=== PATIENT | female | born 1965 | race Caucasian/White ===

== ENCOUNTER 2017-12-16 10:13 | Emergency (ER) | payer OTHER ==
[~2017-12-16] VITALS: Ht 162.6 cm; Wt 91.0 kg
[2017-12-16] MEDS ORDERED: SODIUM CHLORIDE 0.9% 1,000 ML IV ONE (17:39)
[2017-12-16] MEDS ORDERED: KETOROLAC 30MG/ML VIAL IV STA (17:39)
[2017-12-16 17:58] LABS: BASOPHILS % 0.2 % (0.0-2.0); HEMATOCRIT. 42.3 % (36.0-48.0); HEMOGLOBIN. 13.9 g/dL (12.0-16.0); LYMPHOCYTES % 8.9 % (20.0-50.0); MEAN CORPUSCULAR HEMOGLOBIN 29.5 pg (28.0-32.0); MEAN CORPUSCULAR VOLUME 89.6 fL (81.0-99.0); MEAN PLATELET VOLUME 8.7 fl (7.4-10.4); MONOCYTES % 4.6 % (2.0-8.0); NEUTROPHILS % 86.3 % (40.0-76.0); PLATELET 278 x1000/uL (130-400); RED BLOOD CELL COUNT 4.72 mill/uL (4.2-5.4); RED CELL DISTRIBUTION WIDTH 13.9 % (11.6-14.6)
[2017-12-16 18:04] LABS: PROTHROMBIN TIME 10.7 sec (9.4-11.6)
[2017-12-16 18:07] LABS: CARBON DIOXIDE 25 mEq/L (21-32); CHLORIDE 98 mEq/L (98-107)
[2017-12-16] MEDS ORDERED: ONDANSETRON HCL 4MG/2ML VIAL IV ONE (18:15)
[2017-12-16] MEDS ORDERED: INSULIN REGULAR (HUMULIN R) UD 100 UNITS/ML SYR IV ONE (19:15)
[2017-12-16] MEDS ORDERED: INSULIN REGULAR (HUMULIN R) 300UNITS/3ML IV NR (20:54)
[2017-12-16 22:05] LABS: CLARITY URINE CLOUDY (CLEAR); COLOR URINE YELLOW (YELLOW); KETONES URINE 4+ (NEGATIVE); LEUKOCYTE ESTERASE URINE 1+ (NEGATIVE); NITRITE URINE NEGATIVE (NEGATIVE); OCCULT BLOOD URINE 3+ (NEGATIVE); PROTEIN URINE 1+ (NEGATIVE); SPECIFIC GRAVITY URINE 1.036 (1.005-1.030); UROBILINOGEN URINE 0.2 E.U./dL (0.2-1.0)
[2017-12-16 23:54] VITALS: BP 126/74
== END 2017-12-16 23:58 | disposition home or self-care (01) ==
LOC: ER 10:13
DX: E11.65 Type 2 diabetes mellitus with hyperglycemia (principal); N13.2 Hydronephrosis with renal and ureteral calculous obstruction; Z90.49 Acquired absence of other specified parts of digestive tract
CPT/HCPCS: 36415; 74176; 80048; 81001; 81025; 82962; 85025; 85610; 87086; 96361; 96374; 96375; 99285; J1815; J1885; J2405; J7030; Z7610

== ENCOUNTER 2019-02-04 08:25 | Inpatient (IN) | payer OTHER ==
[~2019-02-04] VITALS: Ht 160 cm; Wt 91.6 kg
[2019-02-04] MEDS ORDERED: LIDOCAINE HCL/PF 1% 10 MG/ML 5ML VIAL IJ ONE (11:00)
[2019-02-04] MEDS ORDERED: BACITRACIN ZINC OINT UDPKT TOP ONE (11:00)
[2019-02-04 11:09] LABS: HEMATOCRIT. 39.8 % (36.0-48.0); MEAN CORPUSCULAR HEMOGLOBIN 29.5 pg (28.0-32.0); MEAN CORPUSCULAR VOLUME 89.9 fL (81.0-99.0); MEAN PLATELET VOLUME 8.8 fl (7.4-10.4); PLATELET 292 x1000/uL (130-400); RED BLOOD CELL COUNT 4.43 mill/uL (4.2-5.4); RED CELL DISTRIBUTION WIDTH 14.6 % (11.6-14.6)
[2019-02-04] MEDS ORDERED: SODIUM CHLORIDE 0.9% 1000ML BAG (SEPSIS BOLUS) IV ONE (11:15)
[2019-02-04 11:24] LABS: CHLORIDE 97 mEq/L (98-107); PROTHROMBIN TIME 10.4 sec (9.1-11.1)
[2019-02-04] MEDS ORDERED: ONDANSETRON HCL 4MG/2ML INJ IV ONE (11:30)
[2019-02-04] MEDS ORDERED: MORPHINE SULFATE 4 MG/ML CPJ (NOT FOR IM USE) IV ONE (11:30)
[2019-02-04 11:43] LABS: PLATELET ESTIMATE NORMAL
[2019-02-04 12:19] LABS: CLARITY URINE CLEAR (CLEAR); COLOR URINE YELLOW (YELLOW); KETONES URINE 1+ (NEGATIVE); LEUKOCYTE ESTERASE URINE 3+ (NEGATIVE); NITRITE URINE NEGATIVE (NEGATIVE); OCCULT BLOOD URINE 2+ (NEGATIVE); PH URINE 6.5 (4.5-8.0); PROTEIN URINE NEGATIVE (NEGATIVE); SPECIFIC GRAVITY URINE 1.003 (1.005-1.030); UROBILINOGEN URINE 0.2 E.U./dL (0.2-1.0)
[2019-02-04] MEDS ORDERED: VANCOMYCIN 1 G PREMIX 200 ML IV STA (12:27)
[2019-02-04] MEDS ORDERED: IOHEXOL-350 100 ML BOTTLE ONE (12:58)
[2019-02-04] MEDS ORDERED: FLUCONAZOLE 50MG TABLET PO ONE (13:45)
[2019-02-04] MEDS ORDERED: CEFTRIAXONE 1 G PREMIX 50 ML IV ONE (13:45)
[2019-02-04] MEDS ORDERED: ACETAMINOPHEN 325MG TABLET PO PRN (16:45)
[2019-02-04] MEDS ORDERED: ONDANSETRON HCL 4MG/2ML INJ IV PRN (16:45)
[2019-02-04] MEDS ORDERED: DEXTROSE 50% WATER 50ML SYRINGE IV PRN (16:45)
[2019-02-04] MEDS: ATORVASTATIN CALCIUM 40MG TABLET PO SCH (22:40)
[2019-02-04] MEDS ORDERED: INSULIN GLARGINE UD 100 UNITS/ML SYR SUBCUT NR (23:30)
[2019-02-04] MEDS ORDERED: ATORVASTATIN CALCIUM 40MG TABLET PO NR (23:30)
[2019-02-04] MEDS ORDERED: INSULIN REGULAR (HUMULIN R) 300UNITS/3ML ONE (23:42)
[2019-02-05] VITALS (7 sets, daily range): BP systolic 90–112; BP diastolic 47–70
[2019-02-05] MEDS ORDERED: ZOLPIDEM TARTRATE 5MG TABLET PO PRN (01:58)
[2019-02-05] MEDS ORDERED: VANCOMYCIN 750 MG PREMIX 150 ML IV SCH (03:00)
[2019-02-05] MEDS ORDERED: LEVOFLOXACIN 500MG PREMIX 100 ML IV SCH (04:00)
[2019-02-05] MEDS: BLOOD SUGAR DIAGNOSTIC STRIP TEST SCH ×4 (06:18→21:48)
[2019-02-05] MEDS: INSULIN LISPRO 100 UNITS/ML SUBCUT SCH ×6 (06:18→22:12)
[2019-02-05 09:28] LABS: CHLORIDE 107 mEq/L (98-107)
[2019-02-05 09:34] LABS: HEMATOCRIT. 35.9 % (36.0-48.0); HEMOGLOBIN. 11.6 g/dL (12.0-16.0); MEAN CORPUSCULAR HEMOGLOBIN 29.2 pg (28.0-32.0); MEAN CORPUSCULAR VOLUME 90.3 fL (81.0-99.0); MEAN PLATELET VOLUME 9.1 fl (7.4-10.4); PLATELET 325 x1000/uL (130-400); RED BLOOD CELL COUNT 3.98 mill/uL (4.2-5.4); RED CELL DISTRIBUTION WIDTH 14.6 % (11.6-14.6)
[2019-02-05] MEDS ORDERED: INSULIN GLARGINE UD 100 UNITS/ML SYR SUBCUT SCH (10:00)
[2019-02-05] MEDS: HYDROCODONE/ACETAMINOPHEN 5/325MG TABLET PO PRN (12:01)
[2019-02-05] MEDS: VANCOMYCIN 1 G PREMIX 200 ML IV SCH ×2 (13:20→22:10)
[2019-02-05] MEDS: INSULIN GLARGINE UD 100 UNITS/ML SYR SUBCUT SCH (22:12)
[2019-02-06] VITALS: BP 103/76
[2019-02-06 04:00] VITALS: BP 107/58
[2019-02-06] MEDS ORDERED: LEVOFLOXACIN 500MG PREMIX 100 ML IV SCH (04:00)
[2019-02-06] MEDS: HYDROCODONE/ACETAMINOPHEN 5/325MG TABLET PO PRN (06:39)
[2019-02-06] MEDS: BLOOD SUGAR DIAGNOSTIC STRIP TEST SCH ×4 (06:41→21:31)
[2019-02-06] MEDS: INSULIN LISPRO 100 UNITS/ML SUBCUT SCH ×7 (07:05→21:30)
[2019-02-06 07:59] LABS: BASOPHILS % 0.3 % (0.0-2.0); EOSINOPHILS % 0.2 % (0.0-5.0); HEMATOCRIT. 37.6 % (36.0-48.0); HEMOGLOBIN. 12.3 g/dL (12.0-16.0); LYMPHOCYTES % 8.4 % (20.0-50.0); MEAN CORPUSCULAR HEMOGLOBIN 29.3 pg (28.0-32.0); MEAN CORPUSCULAR VOLUME 89.3 fL (81.0-99.0); MEAN PLATELET VOLUME 9.4 fl (7.4-10.4); MONOCYTES % 7.3 % (2.0-8.0); NEUTROPHILS % 83.8 % (40.0-76.0); PLATELET 330 x1000/uL (130-400); RED BLOOD CELL COUNT 4.21 mill/uL (4.2-5.4); RED CELL DISTRIBUTION WIDTH 14.7 % (11.6-14.6)
[2019-02-06 08:00] VITALS: BP 95/62
[2019-02-06 08:25] LABS: CHLORIDE 103 mEq/L (98-107)
[2019-02-06] MEDS: VANCOMYCIN 1 G PREMIX 200 ML IV SCH (08:52)
[2019-02-06] MEDS: INSULIN GLARGINE UD 100 UNITS/ML SYR SUBCUT SCH ×2 (10:40→21:31)
[2019-02-06 12:00] VITALS: BP 113/61
[2019-02-06 13:21] LABS: PLATELET ESTIMATE NORMAL
[2019-02-06 16:00] VITALS: BP 109/65
[2019-02-06] MEDS: GLIPIZIDE 5MG TABLET PO SCH (17:24)
[2019-02-06] MEDS: FLUCONAZOLE 100MG TABLET PO SCH (17:24)
[2019-02-06] MEDS: VANCOMYCIN 1250MG in DEXTROSE 5% WATER 250ML IV SCH (18:11)
[2019-02-06 20:00] VITALS: BP 132/69
[2019-02-06] MEDS: ATORVASTATIN CALCIUM 40MG TABLET PO SCH (21:29)
[2019-02-07] VITALS: BP 154/90
[2019-02-07] MEDS: VANCOMYCIN 1250MG in DEXTROSE 5% WATER 250ML IV SCH ×3 (00:38→17:42)
[2019-02-07] MEDS: HYDROCODONE/ACETAMINOPHEN 5/325MG TABLET PO PRN ×2 (03:56→10:23)
[2019-02-07 04:00] VITALS: BP 115/69
[2019-02-07] MEDS: GLIPIZIDE 5MG TABLET PO SCH ×2 (06:32→17:42)
[2019-02-07] MEDS: BLOOD SUGAR DIAGNOSTIC STRIP TEST SCH ×4 (06:32→21:08)
[2019-02-07] MEDS: INSULIN LISPRO 100 UNITS/ML SUBCUT SCH ×7 (06:34→21:31)
[2019-02-07 07:14] LABS: BASOPHILS % 0.4 % (0.0-2.0); EOSINOPHILS % 0.2 % (0.0-5.0); HEMATOCRIT. 35.7 % (36.0-48.0); HEMOGLOBIN. 11.9 g/dL (12.0-16.0); LYMPHOCYTES % 8.1 % (20.0-50.0); MEAN CORPUSCULAR HEMOGLOBIN 29.3 pg (28.0-32.0); MEAN CORPUSCULAR VOLUME 88.2 fL (81.0-99.0); MEAN PLATELET VOLUME 9.5 fl (7.4-10.4); MONOCYTES % 9.9 % (2.0-8.0); NEUTROPHILS % 81.4 % (40.0-76.0); PLATELET 309 x1000/uL (130-400); RED BLOOD CELL COUNT 4.05 mill/uL (4.2-5.4)
[2019-02-07 07:36] LABS: CHLORIDE 99 mEq/L (98-107)
[2019-02-07 08:00] VITALS: BP 127/79
[2019-02-07] MEDS ORDERED: POTASSIUM CHLORIDE 20MEQ/PACKET PO SCH (08:15)
[2019-02-07] MEDS: FLUCONAZOLE 100MG TABLET PO SCH (09:03)
[2019-02-07] MEDS: INSULIN GLARGINE UD 100 UNITS/ML SYR SUBCUT SCH ×2 (09:04→21:31)
[2019-02-07] MEDS ORDERED: KCL 20MEQ/100ML PREMIX 100 ML IV SCH (10:00)
[2019-02-07] MEDS ORDERED: LIDOCAINE HCL 1% 20ML VIAL (Pyxis) INJ INFIL NR (11:15)
[2019-02-07 12:00] VITALS: BP 143/86
[2019-02-07 16:00] VITALS: BP 115/64
[2019-02-07 20:00] VITALS: BP 98/60
[2019-02-07] MEDS: ATORVASTATIN CALCIUM 40MG TABLET PO SCH (21:26)
[2019-02-08] VITALS: BP 100/61
[2019-02-08] MEDS: VANCOMYCIN 1250MG in DEXTROSE 5% WATER 250ML IV SCH ×3 (01:12→17:51)
[2019-02-08 04:00] VITALS: BP 124/70
[2019-02-08 06:41] LABS: CHLORIDE 102 mEq/L (98-107)
[2019-02-08 06:43] LABS: BASOPHILS % 1.1 % (0.0-2.0); EOSINOPHILS % 0.5 % (0.0-5.0); HEMATOCRIT. 33.3 % (36.0-48.0); HEMOGLOBIN. 10.9 g/dL (12.0-16.0); LYMPHOCYTES % 14.5 % (20.0-50.0); MEAN CORPUSCULAR HEMOGLOBIN 28.9 pg (28.0-32.0); MEAN CORPUSCULAR VOLUME 88.4 fL (81.0-99.0); MONOCYTES % 9.1 % (2.0-8.0); NEUTROPHILS % 74.8 % (40.0-76.0); PLATELET 285 x1000/uL (130-400); RED BLOOD CELL COUNT 3.77 mill/uL (4.2-5.4); RED CELL DISTRIBUTION WIDTH 14.3 % (11.6-14.6)
[2019-02-08] MEDS: INSULIN LISPRO 100 UNITS/ML SUBCUT SCH ×7 (07:10→21:24)
[2019-02-08] MEDS: BLOOD SUGAR DIAGNOSTIC STRIP TEST SCH ×4 (07:12→21:25)
[2019-02-08] MEDS: GLIPIZIDE 5MG TABLET PO SCH ×2 (07:12→17:51)
[2019-02-08 08:00] VITALS: BP 100/57
[2019-02-08] MEDS: FLUCONAZOLE 100MG TABLET PO SCH (08:55)
[2019-02-08] MEDS: INSULIN GLARGINE UD 100 UNITS/ML SYR SUBCUT SCH ×2 (09:57→21:24)
[2019-02-08 12:00] VITALS: BP 93/57
[2019-02-08] MEDS ORDERED: POTASSIUM CHLORIDE 20MEQ TABLET SR PO NR (12:30)
[2019-02-08 15:45] VITALS: BP 102/59
[2019-02-08 20:00] VITALS: BP 109/76
[2019-02-08] MEDS: ATORVASTATIN CALCIUM 40MG TABLET PO SCH (21:25)
[2019-02-09] VITALS: BP 114/77
[2019-02-09] MEDS: VANCOMYCIN 1250MG in DEXTROSE 5% WATER 250ML IV SCH ×2 (01:39→10:03)
[2019-02-09 04:00] VITALS: BP 111/76
[2019-02-09 06:33] LABS: BASOPHILS % 0.9 % (0.0-2.0); HEMATOCRIT. 33.6 % (36.0-48.0); HEMOGLOBIN. 11.1 g/dL (12.0-16.0); LYMPHOCYTES % 22.1 % (20.0-50.0); MEAN CORPUSCULAR HEMOGLOBIN 29.1 pg (28.0-32.0); MONOCYTES % 10.4 % (2.0-8.0); NEUTROPHILS % 64.6 % (40.0-76.0); PLATELET 333 x1000/uL (130-400); RED BLOOD CELL COUNT 3.82 mill/uL (4.2-5.4); RED CELL DISTRIBUTION WIDTH 14.4 % (11.6-14.6)
[2019-02-09 06:56] LABS: CHLORIDE 103 mEq/L (98-107)
[2019-02-09] MEDS: GLIPIZIDE 5MG TABLET PO SCH (07:09)
[2019-02-09] MEDS: INSULIN LISPRO 100 UNITS/ML SUBCUT SCH ×4 (07:10→12:08)
[2019-02-09] MEDS: BLOOD SUGAR DIAGNOSTIC STRIP TEST SCH ×2 (07:11→12:03)
[2019-02-09 08:00] VITALS: BP 136/76
[2019-02-09] MEDS: FLUCONAZOLE 100MG TABLET PO SCH (10:02)
[2019-02-09] MEDS: INSULIN GLARGINE UD 100 UNITS/ML SYR SUBCUT SCH (11:04)
[2019-02-09 12:00] VITALS: BP 124/61
[2019-02-09] MEDS ORDERED: POTASSIUM CHLORIDE 20MEQ TABLET SR PO NR (12:45)
[2019-02-09 13:02] VITALS: BP 124/61
[2019-02-09] MEDS ORDERED: CEPH-569 MT (14:59)
[2019-02-09] MEDS ORDERED: DOXY150T MT (14:59)
== END 2019-02-09 15:00 | disposition home health service (06) | DRG 710 ==
LOC: ER 08:28 → 5WST 15:24 → ENRESERV 22:24
PROVIDERS: ADMIT Internal Medicine; ATTEND Internal Medicine
PROC: 0W960ZZ Drainage of Neck, Open Approach (ICD-10-PCS; principal; 2019-02-07)
DX: A41.9 Sepsis, unspecified organism (principal); E11.65 Type 2 diabetes mellitus with hyperglycemia; E87.8 Other disorders of electrolyte and fluid balance, not elsewhere classified; E44.1 Mild protein-calorie malnutrition; E87.1 Hypo-osmolality and hyponatremia; L03.221 Cellulitis of neck; E66.9 Obesity, unspecified; N39.0 Urinary tract infection, site not specified; L02.11 Cutaneous abscess of neck; Z87.442 Personal history of urinary calculi; Z90.49 Acquired absence of other specified parts of digestive tract; Z71.3 Dietary counseling and surveillance; Z68.35 Body mass index [BMI] 35.0-35.9, adult
CPT/HCPCS: 36415; 70491; 80048; 80202; 82962; 83036; 83605; 84145; 87106; 93005; 93970; 96374; 96375; 99285; J0696; J1815; J1956; J2270; J2405; J3370; J3480; J3490; J7030; J7040; J7050; J7060; Q9967

== ENCOUNTER 2020-11-12 02:13 | Inpatient (IN) | payer OTHER ==
[~2020-11-12] VITALS: Ht 162.6 cm; Wt 88.6 kg
[~2020-11-12 02:13] MED LIST: INSLIS SUBCUT; INSU100V37 SQ; LANTUSUD SUBCUT; PANT40TA4 MT
[2020-11-12] MEDS ORDERED: ONDANSETRON HCL 4MG/2ML INJ IV STA (02:28)
[2020-11-12] MEDS ORDERED: ACETAMINOPHEN 325MG TABLET PO STA (02:28)
[2020-11-12] MEDS ORDERED: SODIUM CHLORIDE 0.9% 1,000 ML IV ONE ×2 (02:30→04:15)
[2020-11-12 02:58] LABS: BG BASE EXCESS -6.3 mmol/L (-2.0-2.0); BG CARBOXYHEMOGLOBIN 0.5 % (0.5-1.5); BG DEOXYHEMOGLOBIN 3.5 % (0.0-5.0); BG FRACTION INSPIRED OXYGEN 21; BG HCO3 ACT 19.2 mmol/L (22.0-26.0); BG METHEMOGLOBIN 0.1 % (0.0-1.5); BG OXYGEN SATURATION 96.5 % (92.0-98.5); BG OXYHEMOGLOBIN 95.9 % (94.0-97.0); BG PCO2 38.3 mmHg (35.0-45.0); BG PH 7.319 (7.350-7.450); BG PO2 91.2 mmHg (75.0-100.0); BG SAMPLE SITE RIGHT BRACHIAL; BG TOTAL HEMOGLOBIN 14.7 g/dL (12.0-18.0); BG VENT MODE ROOM AIR
[2020-11-12 03:26] LABS: HEMATOCRIT. 44.5 % (36.0-48.0); HEMOGLOBIN. 13.8 g/dL (12.0-16.0); MEAN CORPUSCULAR HEMOGLOBIN 28.9 pg (28.0-32.0); MEAN CORPUSCULAR VOLUME 92.9 fL (81.0-99.0); MEAN PLATELET VOLUME 10.1 fl (7.4-10.4); PLATELET 398 x1000/uL (130-400); RED BLOOD CELL COUNT 4.79 mill/uL (4.2-5.4); RED CELL DISTRIBUTION WIDTH 15.6 % (11.6-14.6)
[2020-11-12 03:36] LABS: CHLORIDE 118 mEq/L (98-107)
[2020-11-12 03:43] LABS: BETA HYDROXYBUTYRATE 1.8 mMol/L (0.0-0.3)
[2020-11-12] MEDS ORDERED: PIPERACILLIN/TAZ 3.375G PREMIX 50 ML IV ONE (04:00)
[2020-11-12] MEDS ORDERED: VANCOMYCIN 1 G PREMIX 200 ML IV ONE (04:00)
[2020-11-12] MEDS ORDERED: INSULIN REGULAR (DRIP) 100 UNITS in SODIUM CHLORIDE 0.9% 99 ML IV SCH ×2 (04:15→05:00)
[2020-11-12 04:53] LABS: PHOSPHORUS 5.4 mg/dL (2.5-4.9)
[2020-11-12 07:22] LABS: PLATELET ESTIMATE NORMAL
[2020-11-12] MEDS ORDERED: ONDANSETRON HCL 4MG/2ML INJ IV PRN (09:15)
[2020-11-12] MEDS ORDERED: DEXTROSE 50% WATER 50ML SYRINGE IV PRN (09:15)
[2020-11-12] MEDS ORDERED: ACETAMINOPHEN 325MG TABLET PO PRN (09:15)
[2020-11-12] MEDS: BLOOD SUGAR DIAGNOSTIC STRIP TEST SCH ×4 (09:30→21:38)
[2020-11-12] MEDS ORDERED: SODIUM CHLORIDE 0.45% 1,000 ML IV SCH (09:45)
[2020-11-12] MEDS ORDERED: INSULIN GLARGINE UD 100 UNITS/ML SYR SUBCUT NR (10:00)
[2020-11-12 10:12] LABS: CLARITY URINE TURBID (CLEAR); COLOR URINE YELLOW (YELLOW); KETONES URINE TRACE (NEGATIVE); LEUKOCYTE ESTERASE URINE 2+ (NEGATIVE); NITRITE URINE NEGATIVE (NEGATIVE); OCCULT BLOOD URINE 3+ (NEGATIVE); PROTEIN URINE 1+ (NEGATIVE); SPECIFIC GRAVITY URINE 1.025 (1.005-1.030); UROBILINOGEN URINE 0.2 E.U./dL (0.2-1.0)
[2020-11-12] MEDS: INSULIN LISPRO 100 UNITS/ML SUBCUT SCH ×4 (10:15→21:00)
[2020-11-12] MEDS: ENOXAPARIN 30MG/0.3ML SYR SUBCUT SCH ×2 (11:00→22:27)
[2020-11-12] MEDS ORDERED: POTASSIUM CHLORIDE INJ 40 MEQ in DEXT 5% WATER 250 ML IV SCH (11:00)
[2020-11-12] MEDS ORDERED: CEFTRIAXONE 1 G PREMIX 50 ML IV SCH (16:45)
[2020-11-12] MEDS ORDERED: CEFTRIAXONE 1,000 MG in DEXTROSE 5% WATER 50 ML IV SCH (18:00)
[2020-11-12] MEDS: DEXTROSE 5% WATER 1,000 ML IV SCH (21:41)
[2020-11-12] MEDS ORDERED: INSULIN GLARGINE UD 100 UNITS/ML SYR SUBCUT SCH (22:00)
[2020-11-13] MEDS: INSULIN LISPRO 100 UNITS/ML SUBCUT SCH ×4 (06:40→21:00)
[2020-11-13] MEDS: BLOOD SUGAR DIAGNOSTIC STRIP TEST SCH ×4 (06:40→21:42)
[2020-11-13 08:00] VITALS: BP 92/45
[2020-11-13 09:29] LABS: BASOPHILS % 0.4 % (0.0-2.0); EOSINOPHILS % 0.3 % (0.0-5.0); HEMATOCRIT. 35.3 % (36.0-48.0); HEMOGLOBIN. 11.4 g/dL (12.0-16.0); MEAN CORPUSCULAR HEMOGLOBIN 29.1 pg (28.0-32.0); MEAN PLATELET VOLUME 9.7 fl (7.4-10.4); MONOCYTES % 3.7 % (2.0-8.0); NEUTROPHILS % 86.6 % (40.0-76.0); PLATELET 282 x1000/uL (130-400); RED BLOOD CELL COUNT 3.92 mill/uL (4.2-5.4); RED CELL DISTRIBUTION WIDTH 14.6 % (11.6-14.6)
[2020-11-13] MEDS: INSULIN GLARGINE UD 100 UNITS/ML SYR SUBCUT SCH ×2 (10:00→22:00)
[2020-11-13] MEDS: ENOXAPARIN 30MG/0.3ML SYR SUBCUT SCH (10:24)
[2020-11-13] MEDS ORDERED: POTASSIUM CHLORIDE 20MEQ TABLET SR PO ONE (12:45)
[2020-11-13] MEDS: DEXTROSE 5% WATER 1,000 ML IV SCH (12:45)
[2020-11-13] MEDS: MIDODRINE HCL 5MG TABLET PO SCH ×2 (16:17→17:00)
[2020-11-13] MEDS: CEFTRIAXONE 1,000 MG in DEXTROSE 5% WATER 50 ML IV SCH (16:18)
[2020-11-13 20:00] VITALS: BP 104/58
[2020-11-13 21:40] VITALS: BP 92/45
[2020-11-13] MEDS: ENOXAPARIN 40MG/0.4ML SYR SUBCUT SCH (21:42)
[2020-11-14] VITALS: BP 111/60
[2020-11-14 04:00] VITALS: BP 108/77
[2020-11-14] MEDS: INSULIN LISPRO 100 UNITS/ML SUBCUT SCH ×4 (06:55→22:09)
[2020-11-14] MEDS: BLOOD SUGAR DIAGNOSTIC STRIP TEST SCH ×4 (06:56→22:02)
[2020-11-14] MEDS: DEXTROSE 5% WATER 1,000 ML IV SCH ×3 (06:56→18:08)
[2020-11-14 07:42] LABS: BASOPHILS % 0.5 % (0.0-2.0); EOSINOPHILS % 0.6 % (0.0-5.0); HEMATOCRIT. 36.4 % (36.0-48.0); HEMOGLOBIN. 11.9 g/dL (12.0-16.0); LYMPHOCYTES % 10.4 % (20.0-50.0); MEAN CORPUSCULAR HEMOGLOBIN 29.4 pg (28.0-32.0); MEAN CORPUSCULAR VOLUME 89.4 fL (81.0-99.0); MEAN PLATELET VOLUME 9.8 fl (7.4-10.4); MONOCYTES % 3.8 % (2.0-8.0); NEUTROPHILS % 84.7 % (40.0-76.0); PLATELET 260 x1000/uL (130-400); RED BLOOD CELL COUNT 4.07 mill/uL (4.2-5.4); RED CELL DISTRIBUTION WIDTH 14.8 % (11.6-14.6)
[2020-11-14] MEDS: MIDODRINE HCL 5MG TABLET PO SCH ×4 (09:00→17:00)
[2020-11-14] MEDS: ENOXAPARIN 40MG/0.4ML SYR SUBCUT SCH ×2 (09:00→10:37)
[2020-11-14] MEDS: INSULIN GLARGINE UD 100 UNITS/ML SYR SUBCUT SCH ×2 (10:39→22:09)
[2020-11-14 12:00] VITALS: BP 101/55
[2020-11-14] MEDS: CEFTRIAXONE 1,000 MG in DEXTROSE 5% WATER 50 ML IV SCH (13:30)
[2020-11-14 16:00] VITALS: BP 103/66
[2020-11-14 20:00] VITALS: BP 95/54
[2020-11-14] MEDS: ENOXAPARIN 30MG/0.3ML SYR SUBCUT SCH (22:07)
[2020-11-15] VITALS (9 sets, daily range): BP systolic 85–98; BP diastolic 44–62
[2020-11-15] MEDS: BLOOD SUGAR DIAGNOSTIC STRIP TEST SCH ×4 (06:25→21:55)
[2020-11-15] MEDS: DEXTROSE 5% WATER 1,000 ML IV SCH ×2 (06:53→14:49)
[2020-11-15] MEDS: INSULIN LISPRO 100 UNITS/ML SUBCUT SCH ×4 (06:54→21:58)
[2020-11-15 07:55] LABS: BASOPHILS % 0.8 % (0.0-2.0); EOSINOPHILS % 1.5 % (0.0-5.0); HEMATOCRIT. 33.1 % (36.0-48.0); HEMOGLOBIN. 10.8 g/dL (12.0-16.0); MEAN CORPUSCULAR HEMOGLOBIN 29.4 pg (28.0-32.0); MEAN CORPUSCULAR VOLUME 89.7 fL (81.0-99.0); MEAN PLATELET VOLUME 10.2 fl (7.4-10.4); MONOCYTES % 6.1 % (2.0-8.0); NEUTROPHILS % 80.6 % (40.0-76.0); PLATELET 222 x1000/uL (130-400); RED BLOOD CELL COUNT 3.68 mill/uL (4.2-5.4); RED CELL DISTRIBUTION WIDTH 14.7 % (11.6-14.6)
[2020-11-15 08:09] LABS: CHLORIDE 124 mEq/L (98-107)
[2020-11-15] MEDS: MIDODRINE HCL 5MG TABLET PO SCH ×5 (09:00→17:00)
[2020-11-15] MEDS: ENOXAPARIN 30MG/0.3ML SYR SUBCUT SCH ×2 (10:02→21:55)
[2020-11-15] MEDS: INSULIN GLARGINE UD 100 UNITS/ML SYR SUBCUT SCH ×2 (10:55→21:57)
[2020-11-15] MEDS ORDERED: POTASSIUM CHLORIDE 20MEQ TABLET SR PO NR (14:45)
[2020-11-15] MEDS: CEFTRIAXONE 1,000 MG in DEXTROSE 5% WATER 50 ML IV SCH (14:48)
[2020-11-15] MEDS ORDERED: POTASSIUM CHLORIDE INJ 40 MEQ in DEXT 5% WATER 250 ML IV ONE (18:00)
[2020-11-16] VITALS: BP 146/86
[2020-11-16 04:00] VITALS: BP 102/51
[2020-11-16] MEDS: DEXTROSE 5% WATER 1,000 ML IV SCH ×3 (07:01→21:27)
[2020-11-16] MEDS: BLOOD SUGAR DIAGNOSTIC STRIP TEST SCH ×4 (07:01→21:27)
[2020-11-16 07:13] LABS: BASOPHILS % 0.5 % (0.0-2.0); EOSINOPHILS % 1.5 % (0.0-5.0); HEMATOCRIT. 35.4 % (36.0-48.0); HEMOGLOBIN. 11.7 g/dL (12.0-16.0); LYMPHOCYTES % 11.3 % (20.0-50.0); MEAN CORPUSCULAR HEMOGLOBIN 29.4 pg (28.0-32.0); MEAN CORPUSCULAR VOLUME 89.2 fL (81.0-99.0); MEAN PLATELET VOLUME 10.6 fl (7.4-10.4); MONOCYTES % 7.3 % (2.0-8.0); NEUTROPHILS % 79.4 % (40.0-76.0); PLATELET 192 x1000/uL (130-400); RED BLOOD CELL COUNT 3.97 mill/uL (4.2-5.4); RED CELL DISTRIBUTION WIDTH 14.6 % (11.6-14.6)
[2020-11-16 08:00] VITALS: BP 98/49
[2020-11-16 08:03] LABS: CHLORIDE 120 mEq/L (98-107)
[2020-11-16] MEDS: MIDODRINE HCL 5MG TABLET PO SCH ×4 (09:00→17:00)
[2020-11-16] MEDS: ENOXAPARIN 30MG/0.3ML SYR SUBCUT SCH ×2 (10:23→21:28)
[2020-11-16] MEDS: INSULIN GLARGINE UD 100 UNITS/ML SYR SUBCUT SCH ×2 (10:31→23:16)
[2020-11-16] MEDS: INSULIN LISPRO 100 UNITS/ML SUBCUT SCH ×4 (10:32→21:00)
[2020-11-16 12:00] VITALS: BP 108/45
[2020-11-16] MEDS: CEFTRIAXONE 1,000 MG in DEXTROSE 5% WATER 50 ML IV SCH (13:44)
[2020-11-16 16:17] VITALS: BP 101/64
[2020-11-16 20:00] VITALS: BP 130/60
[2020-11-17] VITALS: BP_SYST 128; BP_SYST 92; BP_DIAS 55; BP_DIAS 60
[2020-11-17 04:00] VITALS: BP 108/60
[2020-11-17] MEDS: BLOOD SUGAR DIAGNOSTIC STRIP TEST SCH ×4 (06:20→20:59)
[2020-11-17] MEDS: INSULIN LISPRO 100 UNITS/ML SUBCUT SCH ×4 (07:40→21:55)
[2020-11-17 08:00] VITALS: BP 94/46
[2020-11-17] MEDS: MIDODRINE HCL 5MG TABLET PO SCH ×3 (10:40→19:04)
[2020-11-17] MEDS: ENOXAPARIN 30MG/0.3ML SYR SUBCUT SCH (10:40)
[2020-11-17] MEDS: INSULIN GLARGINE UD 100 UNITS/ML SYR SUBCUT SCH ×2 (10:42→22:00)
[2020-11-17] MEDS: DEXTROSE 5% WATER 1,000 ML IV SCH ×2 (10:46→18:14)
[2020-11-17 12:00] VITALS: BP 95/70
[2020-11-17] MEDS: CEFTRIAXONE 1,000 MG in DEXTROSE 5% WATER 50 ML IV SCH (14:43)
[2020-11-17 16:00] VITALS: BP 109/64
[2020-11-18] VITALS: BP 92/55
[2020-11-18] MEDS: DEXTROSE 5% WATER 1,000 ML IV SCH ×2 (02:45→12:45)
[2020-11-18 04:00] VITALS: BP 108/63
[2020-11-18] MEDS: INSULIN LISPRO 100 UNITS/ML SUBCUT SCH ×2 (06:42→14:02)
[2020-11-18] MEDS: BLOOD SUGAR DIAGNOSTIC STRIP TEST SCH ×2 (06:42→13:02)
[2020-11-18] MEDS: MIDODRINE HCL 5MG TABLET PO SCH ×4 (09:00→14:01)
[2020-11-18] MEDS ORDERED: ENOXAPARIN 40MG/0.4ML SYR SUBCUT SCH (09:00)
[2020-11-18] MEDS: INSULIN GLARGINE UD 100 UNITS/ML SYR SUBCUT SCH (09:30)
[2020-11-18 14:37] VITALS: BP 100/51
== END 2020-11-18 17:07 | disposition home or self-care (01) | DRG 720 ==
LOC: ER 02:13 → MICUSO 04:15 → EDBEDREQTM 20:46 → EDBEDREQSVC 20:46 → 8WST 11-13 08:36
PROVIDERS: ADMIT Internal Medicine; ATTEND Internal Medicine
DX: A41.9 Sepsis, unspecified organism (principal); U07.1 COVID-19; R65.21 Severe sepsis with septic shock; N39.0 Urinary tract infection, site not specified; E11.00 Type 2 diabetes mellitus with hyperosmolarity without nonketotic hyperglycemic-hyperosmolar coma (NKHHC); K85.90 Acute pancreatitis without necrosis or infection, unspecified; N17.0 Acute kidney failure with tubular necrosis; E43 Unspecified severe protein-calorie malnutrition; E87.1 Hypo-osmolality and hyponatremia; E87.8 Other disorders of electrolyte and fluid balance, not elsewhere classified; Z79.4 Long term (current) use of insulin; Z79.899 Other long term (current) drug therapy; Z90.49 Acquired absence of other specified parts of digestive tract; Z68.33 Body mass index [BMI] 33.0-33.9, adult; Z86.19 Personal history of other infectious and parasitic diseases
CPT/HCPCS: 36415; 36600; 71045; 80048; 80053; 81003; 82010; 82375; 82805; 82962; 83605; 83735; 83880; 84100; 84145; 84484; 85025; 85379; 87106; 93005; 96365; 99285; J0696; J1650; J1815; J2405; J2543; J3370; J3480; J7030; J7040; J7042; J7050; J7060; J7070; U0003

== ENCOUNTER 2020-11-21 11:45 | Inpatient (IN) | payer OTHER ==
[~2020-11-21] VITALS: Ht 167.6 cm; Wt 106.6 kg
[~2020-11-21 11:45] MED LIST changes: -PANT40TA4 MT; +PANT40TA51 MT
[2020-11-21 13:59] LABS: HEMATOCRIT. 40.5 % (36.0-48.0); HEMOGLOBIN. 12.6 g/dL (12.0-16.0); MEAN CORPUSCULAR HEMOGLOBIN 29.1 pg (28.0-32.0); MEAN CORPUSCULAR VOLUME 93.4 fL (81.0-99.0); MEAN PLATELET VOLUME 10.8 fl (7.4-10.4); PLATELET 436 x1000/uL (130-400); RED BLOOD CELL COUNT 4.34 mill/uL (4.2-5.4); RED CELL DISTRIBUTION WIDTH 15.5 % (11.6-14.6)
[2020-11-21] MEDS ORDERED: CEFTRIAXONE 1 G PREMIX 50 ML IV ONE (14:00)
[2020-11-21] MEDS ORDERED: SODIUM CHLORIDE 0.9% 1,000 ML IV ONE (14:00)
[2020-11-21 14:06] LABS: CHLORIDE 106 mEq/L (98-107)
[2020-11-21 14:15] LABS: PLATELET ESTIMATE INCREASED
[2020-11-21] MEDS ORDERED: NOREPINEPHRINE 8MG/250ML PMX 250 ML IV ONE (14:30)
[2020-11-21] MEDS ORDERED: LACTATED RINGERS 800 ML IV SCH (14:45)
[2020-11-21] MEDS ORDERED: NOREPINEPHRINE 8 MG in SODIUM CHLORIDE 0.9% 242 ML IV NR (15:45)
[2020-11-21] MEDS ORDERED: INSULIN REGULAR (DRIP) 100 UNITS in SODIUM CHLORIDE 0.9% 100 ML IV ONE (16:15)
[2020-11-21] MEDS ORDERED: DEXT 5% WATER + KCL 20MEQ/L 1,000 ML IV ONE (16:15)
[2020-11-21 17:48] LABS: CLARITY URINE TURBID (CLEAR); COLOR URINE YELLOW (YELLOW); KETONES URINE 4+ (NEGATIVE); LEUKOCYTE ESTERASE URINE 1+ (NEGATIVE); NITRITE URINE NEGATIVE (NEGATIVE); OCCULT BLOOD URINE 3+ (NEGATIVE); PROTEIN URINE 1+ (NEGATIVE); SPECIFIC GRAVITY URINE 1.023 (1.005-1.030); UROBILINOGEN URINE 0.2 E.U./dL (0.2-1.0)
[2020-11-21 18:23] LABS: PHOSPHORUS 4.2 mg/dL (2.5-4.9)
[2020-11-21] MEDS ORDERED: LACTATED RINGERS 1,000 ML IV SCH (21:30)
[2020-11-21] MEDS ORDERED: ENOXAPARIN 40MG/0.4ML SYR SUBCUT SCH (23:45)
[2020-11-21] MEDS ORDERED: PIPERACILLIN/TAZ 3.375G PREMIX 50 ML IV SCH (23:45)
[2020-11-21] MEDS ORDERED: ONDANSETRON HCL 4MG/2ML INJ IV PRN (23:45)
[2020-11-22] MEDS ORDERED: DEXTROSE 50% WATER 50ML SYRINGE IV PRN
[2020-11-22] MEDS ORDERED: SODIUM CHLORIDE 0.45% 1,000 ML IV SCH
[2020-11-22] MEDS ORDERED: PIPERACILLIN/TAZ 3.375G PREMIX 50 ML IV SCH ×2 (00:15→06:16)
[2020-11-22 00:36] LABS: HEMATOCRIT 35.6 % (36.0-48.0); HEMOGLOBIN 11.3 g/dL (12.0-16.0)
[2020-11-22 00:41] LABS: CHLORIDE 118 mEq/L (98-107)
[2020-11-22] MEDS ORDERED: POTASSIUM CHLORIDE INJ 40 MEQ in DEXT 5% WATER 250 ML IV SCH (01:00)
[2020-11-22] MEDS ORDERED: VANCOMYCIN 1500MG in DEXTROSE 5% WATER 250ML IV SCH (02:00)
[2020-11-22] MEDS: BLOOD SUGAR DIAGNOSTIC STRIP TEST SCH ×5 (03:06→20:34)
[2020-11-22 05:15] LABS: HEMATOCRIT. 33.1 % (36.0-48.0); HEMOGLOBIN. 10.7 g/dL (12.0-16.0); MEAN CORPUSCULAR HEMOGLOBIN 28.7 pg (28.0-32.0); MEAN CORPUSCULAR VOLUME 89.1 fL (81.0-99.0); MEAN PLATELET VOLUME 9.3 fl (7.4-10.4); PLATELET 371 x1000/uL (130-400); RED BLOOD CELL COUNT 3.72 mill/uL (4.2-5.4); RED CELL DISTRIBUTION WIDTH 14.5 % (11.6-14.6)
[2020-11-22 05:27] LABS: CHLORIDE 117 mEq/L (98-107)
[2020-11-22 05:31] LABS: CREATINE KINASE 26 IU/L (26-192)
[2020-11-22 05:32] LABS: CREATINE KINASE MB FRACTION 1.1 ng/mL (0.5-3.6)
[2020-11-22 07:03] LABS: PLATELET ESTIMATE NORMAL
[2020-11-22 08:26] LABS: CHLORIDE 116 mEq/L (98-107)
[2020-11-22] MEDS: INSULIN LISPRO 100 UNITS/ML SUBCUT SCH ×6 (10:00→20:42)
[2020-11-22] MEDS ORDERED: POTASSIUM CHLORIDE INJ 40 MEQ in DEXT 5% WATER 250 ML IV NR (10:30)
[2020-11-22] MEDS: INSULIN GLARGINE UD 100 UNITS/ML SYR SUBCUT SCH (11:00)
[2020-11-22] MEDS ORDERED: INSULIN REGULAR (DRIP) 100 UNITS in SODIUM CHLORIDE 0.9% 100 ML IV SCH (12:00)
[2020-11-22 12:19] LABS: CHLORIDE 116 mEq/L (98-107)
[2020-11-22] MEDS ORDERED: VANCOMYCIN 1250MG in DEXTROSE 5% WATER 250ML IV SCH (14:00)
[2020-11-22] MEDS ORDERED: VANCOMYCIN 1 G PREMIX 200 ML IV SCH (14:00)
[2020-11-22] MEDS: ENOXAPARIN 40MG/0.4ML SYR SUBCUT SCH ×2 (14:21→20:34)
[2020-11-22] MEDS: PIPERACILLIN/TAZOBACTAM 3.375 G in DEXT 5% WATER 100 ML IV SCH ×3 (15:13→23:05)
[2020-11-22] MEDS ORDERED: NOREPINEPHRINE 8 MG in DEXTROSE 5% WATER 250 ML IV PRN (17:15)
[2020-11-22] MEDS: DEXT 5%/0.45% NACL KCL 20MEQ/L 1,000 ML IV SCH ×2 (18:17→20:00)
[2020-11-22] MEDS: VANCOMYCIN 1 G PREMIX 200 ML IV SCH (18:28)
[2020-11-23] MEDS: VANCOMYCIN 1 G PREMIX 200 ML IV SCH ×2 (05:10→18:04)
[2020-11-23] MEDS: PIPERACILLIN/TAZOBACTAM 3.375 G in DEXT 5% WATER 100 ML IV SCH (05:10)
[2020-11-23] MEDS: DEXT 5%/0.45% NACL KCL 20MEQ/L 1,000 ML IV SCH (05:10)
[2020-11-23 05:14] LABS: BASOPHILS % 0.4 % (0.0-2.0); EOSINOPHILS % 0.8 % (0.0-5.0); HEMATOCRIT. 30.4 % (36.0-48.0); HEMOGLOBIN. 9.7 g/dL (12.0-16.0); LYMPHOCYTES % 7.1 % (20.0-50.0); MEAN CORPUSCULAR HEMOGLOBIN 28.4 pg (28.0-32.0); MEAN CORPUSCULAR VOLUME 88.7 fL (81.0-99.0); MONOCYTES % 6.7 % (2.0-8.0); PLATELET 339 x1000/uL (130-400); RED BLOOD CELL COUNT 3.43 mill/uL (4.2-5.4); RED CELL DISTRIBUTION WIDTH 14.5 % (11.6-14.6)
[2020-11-23] MEDS: INSULIN LISPRO 100 UNITS/ML SUBCUT SCH ×6 (07:05→17:32)
[2020-11-23] MEDS: BLOOD SUGAR DIAGNOSTIC STRIP TEST SCH ×3 (07:05→17:21)
[2020-11-23] MEDS: ENOXAPARIN 40MG/0.4ML SYR SUBCUT SCH (09:00)
[2020-11-23] MEDS: INSULIN GLARGINE UD 100 UNITS/ML SYR SUBCUT SCH (10:44)
[2020-11-23] MEDS ORDERED: POTASSIUM CHLORIDE 20MEQ TABLET SR PO SCH (12:00)
[2020-11-23] MEDS: PIPERACILLIN/TAZ 3.375G PREMIX 50 ML IV SCH ×2 (12:15→17:32)
[2020-11-23] MEDS: FLUCONAZOLE 100MG TABLET PO SCH (14:29)
[2020-11-23] MEDS: SODIUM CHLORIDE 0.45% 1,000 ML IV SCH (15:11)
[2020-11-24] MEDS: BLOOD SUGAR DIAGNOSTIC STRIP TEST SCH ×5 (02:00→20:55)
[2020-11-24] MEDS: SODIUM CHLORIDE 0.45% 1,000 ML IV SCH ×2 (02:15→15:00)
[2020-11-24] MEDS: INSULIN LISPRO 100 UNITS/ML SUBCUT SCH ×8 (03:00→20:54)
[2020-11-24] MEDS: ENOXAPARIN 40MG/0.4ML SYR SUBCUT SCH ×3 (03:00→20:55)
[2020-11-24] MEDS: PIPERACILLIN/TAZ 3.375G PREMIX 50 ML IV SCH ×4 (03:15→18:07)
[2020-11-24] MEDS: INSULIN GLARGINE UD 100 UNITS/ML SYR SUBCUT SCH ×3 (03:30→21:44)
[2020-11-24] MEDS: ONDANSETRON HCL 4MG/2ML INJ IV PRN (04:08)
[2020-11-24] MEDS: VANCOMYCIN 1 G PREMIX 200 ML IV SCH (06:00)
[2020-11-24] MEDS: FLUCONAZOLE 100MG TABLET PO SCH ×2 (09:33→09:41)
[2020-11-24 13:37] LABS: BASOPHILS % 0.8 % (0.0-2.0); HEMATOCRIT. 26.6 % (36.0-48.0); HEMOGLOBIN. 8.7 g/dL (12.0-16.0); LYMPHOCYTES % 12.6 % (20.0-50.0); MEAN CORPUSCULAR HEMOGLOBIN 28.9 pg (28.0-32.0); MEAN CORPUSCULAR VOLUME 87.9 fL (81.0-99.0); MEAN PLATELET VOLUME 8.6 fl (7.4-10.4); MONOCYTES % 6.5 % (2.0-8.0); NEUTROPHILS % 78.1 % (40.0-76.0); PLATELET 318 x1000/uL (130-400); RED BLOOD CELL COUNT 3.02 mill/uL (4.2-5.4); RED CELL DISTRIBUTION WIDTH 14.5 % (11.6-14.6)
[2020-11-24 13:59] LABS: VANCOMYCIN TROUGH 28.4 ug/mL (5.0-10.0)
[2020-11-24] MEDS ORDERED: VANCOMYCIN 750 MG PREMIX 150 ML IV SCH (21:00)
[2020-11-25] MEDS: SODIUM CHLORIDE 0.45% 1,000 ML IV SCH (04:31)
[2020-11-25] MEDS: INSULIN LISPRO 100 UNITS/ML SUBCUT SCH ×6 (06:30→17:00)
[2020-11-25] MEDS: BLOOD SUGAR DIAGNOSTIC STRIP TEST SCH ×3 (06:32→16:30)
[2020-11-25] MEDS: ENOXAPARIN 40MG/0.4ML SYR SUBCUT SCH ×2 (09:47→11:55)
[2020-11-25] MEDS: INSULIN GLARGINE UD 100 UNITS/ML SYR SUBCUT SCH (10:24)
[2020-11-25] MEDS ORDERED: POTASSIUM CHLORIDE 20MEQ TABLET SR PO NR (15:44)
[2020-11-25] MEDS ORDERED: DEXT 5%/0.45% NACL KCL 40MEQ/L 1,000 ML IV ONE (15:45)
[2020-11-26] MEDS: BLOOD SUGAR DIAGNOSTIC STRIP TEST SCH ×5 (05:21→21:27)
[2020-11-26 07:40] LABS: CHLORIDE 110 mEq/L (98-107)
[2020-11-26] MEDS: SODIUM CHLORIDE 0.45% 1,000 ML IV SCH ×3 (08:06→17:25)
[2020-11-26] MEDS: FLUCONAZOLE 100MG TABLET PO SCH (09:00)
[2020-11-26] MEDS: INSULIN GLARGINE UD 100 UNITS/ML SYR SUBCUT SCH ×3 (10:00→21:59)
[2020-11-26] MEDS: INSULIN LISPRO 100 UNITS/ML SUBCUT SCH ×6 (10:18→21:00)
[2020-11-26] MEDS: ENOXAPARIN 40MG/0.4ML SYR SUBCUT SCH (11:30)
[2020-11-26] MEDS ORDERED: POTASSIUM CHLORIDE 20MEQ TABLET SR PO SCH (13:15)
[2020-11-26] MEDS ORDERED: POTASSIUM CHLORIDE INJ 40 MEQ in DEXT 5% WATER 250 ML IV SCH (15:00)
[2020-11-26] MEDS ORDERED: POTASSIUM CHLORIDE INJ 40 MEQ in SODIUM CHLORIDE 0.9% 250 ML IV NR (18:00)
[2020-11-26] MEDS ORDERED: NOREPINEPHRINE 8 MG in SODIUM CHLORIDE 0.9% 242 ML IV PRN (21:00)
[2020-11-27] MEDS: BLOOD SUGAR DIAGNOSTIC STRIP TEST SCH ×4 (06:23→21:57)
[2020-11-27] MEDS: INSULIN LISPRO 100 UNITS/ML SUBCUT SCH ×3 (06:24→21:57)
[2020-11-27 08:28] LABS: BASOPHILS % 0.7 % (0.0-2.0); EOSINOPHILS % 1.5 % (0.0-5.0); HEMATOCRIT. 29.2 % (36.0-48.0); HEMOGLOBIN. 9.4 g/dL (12.0-16.0); LYMPHOCYTES % 13.1 % (20.0-50.0); MEAN CORPUSCULAR HEMOGLOBIN 28.5 pg (28.0-32.0); MEAN CORPUSCULAR VOLUME 88.6 fL (81.0-99.0); MEAN PLATELET VOLUME 9.1 fl (7.4-10.4); MONOCYTES % 10.8 % (2.0-8.0); NEUTROPHILS % 73.9 % (40.0-76.0); PLATELET 368 x1000/uL (130-400); RED CELL DISTRIBUTION WIDTH 14.7 % (11.6-14.6)
[2020-11-27 08:36] LABS: CHLORIDE 112 mEq/L (98-107)
[2020-11-27] MEDS: FLUCONAZOLE 100MG TABLET PO SCH (09:00)
[2020-11-27] MEDS: SODIUM CHLORIDE 0.45% 1,000 ML IV SCH (09:20)
[2020-11-27] MEDS ORDERED: POTASSIUM CHLORIDE 20MEQ TABLET SR PO NR (15:00)
[2020-11-27] MEDS ORDERED: POTASSIUM CHLORIDE INJ 40 MEQ in SODIUM CHLORIDE 0.45% 250 ML IV SCH (16:00)
[2020-11-28] MEDS: SODIUM CHLORIDE 0.45% 1,000 ML IV SCH ×2 (01:22→12:00)
[2020-11-28] MEDS: ENOXAPARIN 40MG/0.4ML SYR SUBCUT SCH ×2 (01:28→23:36)
[2020-11-28] MEDS: INSULIN GLARGINE UD 100 UNITS/ML SYR SUBCUT SCH ×2 (01:45→12:42)
[2020-11-28 06:05] LABS: BASOPHILS % 0.6 % (0.0-2.0); HEMOGLOBIN. 8.6 g/dL (12.0-16.0); LYMPHOCYTES % 12.1 % (20.0-50.0); MEAN CORPUSCULAR HEMOGLOBIN 29.4 pg (28.0-32.0); MEAN CORPUSCULAR VOLUME 88.8 fL (81.0-99.0); MEAN PLATELET VOLUME 8.6 fl (7.4-10.4); MONOCYTES % 10.2 % (2.0-8.0); NEUTROPHILS % 76.1 % (40.0-76.0); PLATELET 332 x1000/uL (130-400); RED BLOOD CELL COUNT 2.93 mill/uL (4.2-5.4)
[2020-11-28] MEDS: INSULIN LISPRO 100 UNITS/ML SUBCUT SCH ×6 (06:30→23:36)
[2020-11-28 06:39] LABS: CHLORIDE 111 mEq/L (98-107)
[2020-11-28] MEDS: BLOOD SUGAR DIAGNOSTIC STRIP TEST SCH ×4 (13:21→22:54)
[2020-11-29] MEDS: INSULIN GLARGINE UD 100 UNITS/ML SYR SUBCUT SCH ×3 (00:47→22:38)
[2020-11-29] MEDS: SODIUM CHLORIDE 0.45% 1,000 ML IV SCH ×2 (00:47→14:40)
[2020-11-29] MEDS: INSULIN LISPRO 100 UNITS/ML SUBCUT SCH ×7 (06:30→21:41)
[2020-11-29] MEDS: BLOOD SUGAR DIAGNOSTIC STRIP TEST SCH ×4 (06:39→21:27)
[2020-11-29] MEDS: ENOXAPARIN 40MG/0.4ML SYR SUBCUT SCH ×2 (09:00→22:39)
[2020-11-30 08:44] LABS: BASOPHILS % 0.5 % (0.0-2.0); EOSINOPHILS % 4.6 % (0.0-5.0); HEMATOCRIT. 27.6 % (36.0-48.0); HEMOGLOBIN. 9.2 g/dL (12.0-16.0); MEAN CORPUSCULAR HEMOGLOBIN 29.6 pg (28.0-32.0); MEAN CORPUSCULAR VOLUME 88.4 fL (81.0-99.0); MEAN PLATELET VOLUME 8.5 fl (7.4-10.4); MONOCYTES % 10.9 % (2.0-8.0); PLATELET 462 x1000/uL (130-400); RED BLOOD CELL COUNT 3.13 mill/uL (4.2-5.4); RED CELL DISTRIBUTION WIDTH 16.2 % (11.6-14.6)
[2020-11-30 08:50] LABS: CHLORIDE 108 mEq/L (98-107)
[2020-11-30 08:55] LABS: PHOSPHORUS 2.5 mg/dL (2.5-4.9)
[2020-11-30] MEDS: INSULIN GLARGINE UD 100 UNITS/ML SYR SUBCUT SCH ×2 (10:00→23:16)
[2020-11-30] MEDS: BLOOD SUGAR DIAGNOSTIC STRIP TEST SCH ×4 (10:00→20:47)
[2020-11-30] MEDS: INSULIN LISPRO 100 UNITS/ML SUBCUT SCH ×6 (12:35→20:47)
[2020-11-30] MEDS: ENOXAPARIN 40MG/0.4ML SYR SUBCUT SCH ×2 (12:35→20:47)
[2020-11-30] MEDS ORDERED: MAGNESIUM 2 G PREMIX 50 ML IV SCH (22:00)
[2020-11-30] MEDS: MIDODRINE HCL 2.5MG TABLET PO SCH (23:16)
[2020-12-01] MEDS ORDERED: POTASSIUM CHLORIDE INJ 40 MEQ in DEXT 5% WATER 250 ML IV SCH ×2
[2020-12-01] MEDS: BLOOD SUGAR DIAGNOSTIC STRIP TEST SCH ×4 (06:12→21:00)
[2020-12-01] MEDS: INSULIN LISPRO 100 UNITS/ML SUBCUT SCH ×7 (06:38→21:00)
[2020-12-01] MEDS: MIDODRINE HCL 2.5MG TABLET PO SCH ×3 (09:00→16:50)
[2020-12-01] MEDS: ENOXAPARIN 40MG/0.4ML SYR SUBCUT SCH ×2 (09:00→22:52)
[2020-12-01] MEDS: INSULIN GLARGINE UD 100 UNITS/ML SYR SUBCUT SCH ×2 (10:40→22:00)
[2020-12-01] MEDS ORDERED: SODIUM CHLORIDE 0.9% 1,000 ML IV ONE ×2 (11:30)
[2020-12-02 06:51] LABS: CHLORIDE 108 mEq/L (98-107)
[2020-12-02 07:04] LABS: BASOPHILS % 0.7 % (0.0-2.0); EOSINOPHILS % 3.7 % (0.0-5.0); HEMATOCRIT. 22.4 % (36.0-48.0); HEMOGLOBIN. 7.6 g/dL (12.0-16.0); LYMPHOCYTES % 17.6 % (20.0-50.0); MEAN CORPUSCULAR HEMOGLOBIN 29.9 pg (28.0-32.0); MEAN CORPUSCULAR VOLUME 87.9 fL (81.0-99.0); MEAN PLATELET VOLUME 8.4 fl (7.4-10.4); MONOCYTES % 7.9 % (2.0-8.0); NEUTROPHILS % 70.1 % (40.0-76.0); PLATELET 385 x1000/uL (130-400); RED BLOOD CELL COUNT 2.55 mill/uL (4.2-5.4); RED CELL DISTRIBUTION WIDTH 16.3 % (11.6-14.6)
[2020-12-02] MEDS: BLOOD SUGAR DIAGNOSTIC STRIP TEST SCH ×4 (08:36→21:00)
[2020-12-02] MEDS: INSULIN LISPRO 100 UNITS/ML SUBCUT SCH ×7 (08:36→21:00)
[2020-12-02] MEDS: INSULIN GLARGINE UD 100 UNITS/ML SYR SUBCUT SCH ×2 (10:13→22:00)
[2020-12-02] MEDS: ENOXAPARIN 40MG/0.4ML SYR SUBCUT SCH ×2 (10:13→21:00)
[2020-12-02] MEDS ORDERED: POTASSIUM CHLORIDE INJ 40 MEQ in DEXT 5% WATER 250 ML IV SCH (11:00)
[2020-12-02] MEDS: MIDODRINE HCL 2.5MG TABLET PO SCH (11:53)
[2020-12-02] MEDS: POTASSIUM CHLORIDE 20MEQ TABLET SR PO SCH (16:04)
[2020-12-02] MEDS ORDERED: DIPHENHYDRAMINE 25MG CAPSULE PO NR (23:30)
[2020-12-02] MEDS ORDERED: ACETAMINOPHEN 325MG TABLET PO NR (23:30)
[2020-12-03] MEDS: ONDANSETRON HCL 4MG/2ML INJ IV PRN ×2 (03:15→08:30)
[2020-12-03 05:32] LABS: CHLORIDE 108 mEq/L (98-107); HEMATOCRIT. 24.9 % (36.0-48.0); HEMOGLOBIN. 8.6 g/dL (12.0-16.0); MEAN CORPUSCULAR HEMOGLOBIN 30.3 pg (28.0-32.0); MEAN CORPUSCULAR VOLUME 87.9 fL (81.0-99.0); MEAN PLATELET VOLUME 7.9 fl (7.4-10.4); PLATELET 410 x1000/uL (130-400); RED BLOOD CELL COUNT 2.83 mill/uL (4.2-5.4); RED CELL DISTRIBUTION WIDTH 16.3 % (11.6-14.6)
[2020-12-03 05:38] LABS: TOTAL IRON BINDING CAPACITY 160 ug/dL (250-450)
[2020-12-03] MEDS: BLOOD SUGAR DIAGNOSTIC STRIP TEST SCH ×4 (06:30→21:12)
[2020-12-03] MEDS: INSULIN LISPRO 100 UNITS/ML SUBCUT SCH ×7 (06:30→21:00)
[2020-12-03] MEDS: FLUDROCORTISONE ACETATE 0.1MG TABLET PO SCH (09:00)
[2020-12-03] MEDS: ENOXAPARIN 40MG/0.4ML SYR SUBCUT SCH (09:00)
[2020-12-03] MEDS: POTASSIUM CHLORIDE 20MEQ TABLET SR PO SCH (09:00)
[2020-12-03] MEDS: NOREPINEPHRINE 16 MG in DEXT 5% WATER 484 ML IV PRN (09:52)
[2020-12-03] MEDS: INSULIN GLARGINE UD 100 UNITS/ML SYR SUBCUT SCH ×2 (10:00→22:00)
[2020-12-03 10:14] LABS: INR 1.2; PROTHROMBIN TIME 12.4 sec (9.6-11.0)
[2020-12-03 10:41] LABS: HEMATOCRIT 24.1 % (36.0-48.0); HEMOGLOBIN 8.1 g/dL (12.0-16.0)
[2020-12-03 13:25] LABS: PLATELET ESTIMATE SLIGHTLY INCREASED
[2020-12-03] MEDS ORDERED: PANTOPRAZOLE 80 MG in SODIUM CHLORIDE 0.9% 100 ML IV SCH (18:30)
[2020-12-03 21:30] LABS: HEMATOCRIT 30.8 % (36.0-48.0); HEMOGLOBIN 10.3 g/dL (12.0-16.0)
[2020-12-03] MEDS ORDERED: POTASSIUM CHLORIDE INJ 40 MEQ in DEXT 5% WATER 250 ML IV SCH (22:00)
[2020-12-04] MEDS ORDERED: SODIUM CHLORIDE 0.9% 1,000 ML IV NR (00:45)
[2020-12-04] MEDS ORDERED: ACETAMINOPHEN 650MG SUPP PR PRN (00:45)
[2020-12-04] MEDS ORDERED: IOHEXOL-350 100 ML BOTTLE ONE (02:12)
[2020-12-04] MEDS: BLOOD SUGAR DIAGNOSTIC STRIP TEST SCH ×2 (06:02→12:00)
[2020-12-04] MEDS: INSULIN LISPRO 100 UNITS/ML SUBCUT SCH ×4 (06:03→14:00)
[2020-12-04] MEDS ORDERED: PANTOPRAZOLE SODIUM 40 MG/VIAL IV SCH (09:00)
[2020-12-04] MEDS: POTASSIUM CHLORIDE 20MEQ TABLET SR PO SCH (10:00)
[2020-12-04] MEDS: FLUDROCORTISONE ACETATE 0.1MG TABLET PO SCH (10:00)
[2020-12-04] MEDS: INSULIN GLARGINE UD 100 UNITS/ML SYR SUBCUT SCH ×2 (10:30→23:30)
[2020-12-04] MEDS: ASCORBIC ACID 500 MG TABLET PO SCH (12:45)
[2020-12-04] MEDS ORDERED: SENNOSIDES/DOCUSATE SOD 8.6/50MG TABLET PO PRN (13:00)
[2020-12-04] MEDS: POLYETHYLENE GLYCOL 3350 (17GM) 1 DOSE PACK PO SCH (13:00)
[2020-12-04] MEDS: FERROUS SULFATE 325MG TABLET PO SCH (17:00)
[2020-12-04] MEDS: PANTOPRAZOLE SODIUM 40 MG/VIAL IV SCH (17:00)
[2020-12-04] MEDS: DOCUSATE SODIUM 100MG CAPSULE PO SCH (17:00)
[2020-12-05] MEDS: FERROUS SULFATE 325MG TABLET PO SCH ×2 (06:45→17:00)
[2020-12-05] MEDS: ASCORBIC ACID 500 MG TABLET PO SCH (09:00)
[2020-12-05] MEDS: FLUDROCORTISONE ACETATE 0.1MG TABLET PO SCH (09:00)
[2020-12-05] MEDS: DOCUSATE SODIUM 100MG CAPSULE PO SCH ×2 (09:00→17:00)
[2020-12-05] MEDS: POLYETHYLENE GLYCOL 3350 (17GM) 1 DOSE PACK PO SCH (09:00)
[2020-12-05] MEDS: POTASSIUM CHLORIDE 20MEQ TABLET SR PO SCH (09:00)
[2020-12-05 09:02] LABS: HEMATOCRIT. 29.5 % (36.0-48.0); HEMOGLOBIN. 9.8 g/dL (12.0-16.0); MEAN CORPUSCULAR HEMOGLOBIN 29.3 pg (28.0-32.0); MEAN CORPUSCULAR VOLUME 88.4 fL (81.0-99.0); MEAN PLATELET VOLUME 8.7 fl (7.4-10.4); PLATELET 240 x1000/uL (130-400); RED BLOOD CELL COUNT 3.34 mill/uL (4.2-5.4); RED CELL DISTRIBUTION WIDTH 16.5 % (11.6-14.6)
[2020-12-05 09:09] LABS: CHLORIDE 106 mEq/L (98-107)
[2020-12-05] MEDS: INSULIN GLARGINE UD 100 UNITS/ML SYR SUBCUT SCH ×2 (11:01→22:00)
[2020-12-05 11:24] LABS: PLATELET ESTIMATE NORMAL
[2020-12-05] MEDS: BLOOD SUGAR DIAGNOSTIC STRIP TEST SCH ×3 (13:54→21:00)
[2020-12-05] MEDS: INSULIN LISPRO 100 UNITS/ML SUBCUT SCH ×5 (13:55→21:00)
[2020-12-05] MEDS: PANTOPRAZOLE SODIUM 40 MG/VIAL IV SCH ×2 (14:46→17:00)
[2020-12-05] MEDS ORDERED: SODIUM CHLORIDE 0.9% 1,000 ML IV SCH ×2 (16:15→17:15)
[2020-12-05] MEDS: VANCOMYCIN 750 MG PREMIX 150 ML IV SCH (17:00)
[2020-12-05] MEDS: PIPERACILLIN/TAZ 3.375G PREMIX 50 ML IV SCH (17:57)
[2020-12-05] MEDS: SODIUM CHLORIDE 0.9% 1,000 ML IV SCH (22:45)
[2020-12-06] VITALS (43 sets, daily range): BP systolic 82–155; BP diastolic 49–91
[2020-12-06] MEDS: PIPERACILLIN/TAZ 3.375G PREMIX 50 ML IV SCH ×3 (06:00→12:58)
[2020-12-06] MEDS: VANCOMYCIN 750 MG PREMIX 150 ML IV SCH ×3 (06:00→18:00)
[2020-12-06] MEDS: BLOOD SUGAR DIAGNOSTIC STRIP TEST SCH ×4 (06:30→21:01)
[2020-12-06] MEDS: INSULIN LISPRO 100 UNITS/ML SUBCUT SCH ×7 (06:30→21:00)
[2020-12-06] MEDS: SODIUM CHLORIDE 0.9% 1,000 ML IV SCH ×2 (06:45→15:05)
[2020-12-06 08:10] LABS: CHLORIDE 107 mEq/L (98-107)
[2020-12-06 08:27] LABS: HEMATOCRIT. 27.9 % (36.0-48.0); HEMOGLOBIN. 8.9 g/dL (12.0-16.0); MEAN CORPUSCULAR HEMOGLOBIN 28.1 pg (28.0-32.0); MEAN CORPUSCULAR VOLUME 88.3 fL (81.0-99.0); MEAN PLATELET VOLUME 10.4 fl (7.4-10.4); RED BLOOD CELL COUNT 3.16 mill/uL (4.2-5.4); RED CELL DISTRIBUTION WIDTH 17.2 % (11.6-14.6)
[2020-12-06 08:32] LABS: PLATELET 112 x1000/uL (130-400)
[2020-12-06] MEDS: POLYETHYLENE GLYCOL 3350 (17GM) 1 DOSE PACK PO SCH ×2 (09:00→09:02)
[2020-12-06] MEDS: DOCUSATE SODIUM 100MG CAPSULE PO SCH ×3 (09:00→17:20)
[2020-12-06] MEDS: POTASSIUM CHLORIDE 20MEQ TABLET SR PO SCH ×2 (09:00→09:02)
[2020-12-06] MEDS: FLUDROCORTISONE ACETATE 0.1MG TABLET PO SCH (09:01)
[2020-12-06] MEDS: PANTOPRAZOLE SODIUM 40 MG/VIAL IV SCH ×2 (09:02→17:19)
[2020-12-06] MEDS: ASCORBIC ACID 500 MG TABLET PO SCH (09:02)
[2020-12-06] MEDS: FERROUS SULFATE 325MG TABLET PO SCH ×2 (09:22→17:20)
[2020-12-06] MEDS: NOREPINEPHRINE 16 MG in DEXT 5% WATER 484 ML IV PRN (09:38)
[2020-12-06 10:54] LABS: PLATELET ESTIMATE DECREASED
[2020-12-06] MEDS: INSULIN GLARGINE UD 100 UNITS/ML SYR SUBCUT SCH ×2 (12:13→21:02)
[2020-12-06] MEDS ORDERED: POTASSIUM CHLORIDE 20MEQ TABLET SR PO NR (15:00)
[2020-12-06] MEDS: ONDANSETRON HCL 4MG/2ML INJ IV PRN (17:20)
[2020-12-06] MEDS: PIPERACILLIN/TAZOBACTAM 3.375 G in DEXT 5% WATER 100 ML IV SCH ×2 (17:20→23:23)
[2020-12-06] MEDS: MIRTAZAPINE 15MG TABLET PO SCH (21:00)
[2020-12-06] MEDS: METOCLOPRAMIDE HCL 10MG/2ML VIAL IV SCH (21:47)
[2020-12-07] VITALS (100 sets, daily range): BP systolic 90–133; BP diastolic 47–77
[2020-12-07] MEDS: SODIUM CHLORIDE 0.9% 1,000 ML IV SCH ×3 (02:42→13:54)
[2020-12-07] MEDS: NOREPINEPHRINE 16 MG in DEXT 5% WATER 484 ML IV PRN (03:21)
[2020-12-07] MEDS: PIPERACILLIN/TAZOBACTAM 3.375 G in DEXT 5% WATER 100 ML IV SCH ×4 (05:39→23:34)
[2020-12-07 06:02] LABS: VANCOMYCIN TROUGH 23.1 ug/mL (5.0-10.0)
[2020-12-07 06:03] LABS: MEAN CORPUSCULAR HEMOGLOBIN 28.6 pg (28.0-32.0); MEAN PLATELET VOLUME 10.5 fl (7.4-10.4); PLATELET 83 x1000/uL (130-400); RED BLOOD CELL COUNT 2.32 mill/uL (4.2-5.4); RED CELL DISTRIBUTION WIDTH 16.9 % (11.6-14.6)
[2020-12-07] MEDS: VANCOMYCIN 750 MG PREMIX 150 ML IV SCH (06:35)
[2020-12-07] MEDS: FERROUS SULFATE 325MG TABLET PO SCH ×4 (06:35→18:15)
[2020-12-07] MEDS: BLOOD SUGAR DIAGNOSTIC STRIP TEST SCH ×4 (06:35→21:00)
[2020-12-07] MEDS: METOCLOPRAMIDE HCL 10MG/2ML VIAL IV SCH ×3 (06:37→22:15)
[2020-12-07] MEDS: INSULIN LISPRO 100 UNITS/ML SUBCUT SCH ×4 (06:38→21:00)
[2020-12-07 06:47] LABS: HEMOGLOBIN. 6.6 g/dL (12.0-16.0)
[2020-12-07 06:48] LABS: HEMATOCRIT. 20.2 % (36.0-48.0)
[2020-12-07] MEDS: ASCORBIC ACID 500 MG TABLET PO SCH (09:14)
[2020-12-07] MEDS: DOCUSATE SODIUM 100MG CAPSULE PO SCH ×3 (09:14→18:15)
[2020-12-07] MEDS: POLYETHYLENE GLYCOL 3350 (17GM) 1 DOSE PACK PO SCH (09:14)
[2020-12-07] MEDS: PANTOPRAZOLE SODIUM 40 MG/VIAL IV SCH ×2 (09:14→18:15)
[2020-12-07] MEDS: POTASSIUM CHLORIDE 20MEQ TABLET SR PO SCH (09:14)
[2020-12-07] MEDS ORDERED: POTASSIUM CHLORIDE INJ 40 MEQ in DEXT 5% WATER 250 ML IV NR (09:30)
[2020-12-07] MEDS ORDERED: POTASSIUM CHLORIDE 20MEQ/PACKET PO NR (09:30)
[2020-12-07] MEDS: INSULIN GLARGINE UD 100 UNITS/ML SYR SUBCUT SCH ×2 (10:24→22:00)
[2020-12-07] MEDS: FLUDROCORTISONE ACETATE 0.1MG TABLET PO SCH (10:48)
[2020-12-07 11:21] LABS: PLATELET ESTIMATE DECREASED
[2020-12-07] MEDS ORDERED: KCL 10MEQ/50ML PREMIX 100 ML IV PRN (14:00)
[2020-12-07] MEDS ORDERED: KCL 10MEQ/50ML PREMIX 200 ML IV PRN (14:00)
[2020-12-07] MEDS ORDERED: KCL 10MEQ/50ML PREMIX 150 ML IV PRN (14:00)
[2020-12-07] MEDS ORDERED: MAGNESIUM/ALUMINUM HYDROXIDE/SIMETHICONE 30ML UDC PO PRN (14:00)
[2020-12-07 14:53] LABS: PHOSPHORUS 1.5 mg/dL (2.5-4.9)
[2020-12-07] MEDS ORDERED: CALCIUM GLUCONATE 1GM PREMIX 50 ML IV NR (15:30)
[2020-12-07] MEDS ORDERED: MAGNESIUM 4 G PREMIX 100 ML IV NR (17:00)
[2020-12-07] MEDS ORDERED: POTASSIUM PHOS,M-BASIC-D-BASIC 20 MMOL in DEXT 5% WATER 243.3333 ML IV NR (17:30)
[2020-12-07] MEDS: MIRTAZAPINE 15MG TABLET PO SCH (21:00)
[2020-12-08] VITALS (84 sets, daily range): BP systolic 80–152; BP diastolic 41–93
[2020-12-08] MEDS: ONDANSETRON HCL 4MG/2ML INJ IV PRN ×2 (03:59→09:35)
[2020-12-08] MEDS: PIPERACILLIN/TAZOBACTAM 3.375 G in DEXT 5% WATER 100 ML IV SCH ×4 (05:51→23:27)
[2020-12-08] MEDS: METOCLOPRAMIDE HCL 10MG/2ML VIAL IV SCH ×3 (05:52→23:25)
[2020-12-08] MEDS: BLOOD SUGAR DIAGNOSTIC STRIP TEST SCH ×4 (05:52→21:00)
[2020-12-08 05:58] LABS: HEMATOCRIT. 27.7 % (36.0-48.0); HEMOGLOBIN. 9.3 g/dL (12.0-16.0); MEAN CORPUSCULAR HEMOGLOBIN 28.8 pg (28.0-32.0); MEAN CORPUSCULAR VOLUME 85.5 fL (81.0-99.0); MEAN PLATELET VOLUME 10.8 fl (7.4-10.4); PLATELET 68 x1000/uL (130-400); RED BLOOD CELL COUNT 3.24 mill/uL (4.2-5.4); RED CELL DISTRIBUTION WIDTH 16.2 % (11.6-14.6)
[2020-12-08] MEDS ORDERED: VANCOMYCIN 1 G PREMIX 200 ML IV SCH (06:00)
[2020-12-08] MEDS: FERROUS SULFATE 325MG TABLET PO SCH ×3 (06:03→18:44)
[2020-12-08] MEDS: INSULIN LISPRO 100 UNITS/ML SUBCUT SCH ×4 (06:03→21:00)
[2020-12-08 06:23] LABS: PHOSPHORUS 2.5 mg/dL (2.5-4.9)
[2020-12-08] MEDS ORDERED: KCL 20MEQ/100ML PREMIX 100 ML IV SCH (08:00)
[2020-12-08] MEDS: SODIUM CHLORIDE 0.9% 1,000 ML IV SCH ×4 (09:34→23:20)
[2020-12-08] MEDS: PANTOPRAZOLE SODIUM 40 MG/VIAL IV SCH ×2 (09:35→18:46)
[2020-12-08] MEDS: POTASSIUM CHLORIDE 20MEQ TABLET SR PO SCH (09:35)
[2020-12-08] MEDS: ASCORBIC ACID 500 MG TABLET PO SCH (09:36)
[2020-12-08] MEDS: POLYETHYLENE GLYCOL 3350 (17GM) 1 DOSE PACK PO SCH (09:36)
[2020-12-08] MEDS: DOCUSATE SODIUM 100MG CAPSULE PO SCH ×2 (09:36→18:45)
[2020-12-08] MEDS: FLUDROCORTISONE ACETATE 0.1MG TABLET PO SCH (09:37)
[2020-12-08] MEDS ORDERED: KCL 10MEQ/50ML PREMIX 50 ML IV SCH (10:00)
[2020-12-08] MEDS: INSULIN GLARGINE UD 100 UNITS/ML SYR SUBCUT SCH ×2 (11:05→23:26)
[2020-12-08 15:30] LABS: PLATELET ESTIMATE DECREASED
[2020-12-08] MEDS: MIRTAZAPINE 15MG TABLET PO SCH (23:27)
[2020-12-09] VITALS (16 sets, daily range): BP systolic 90–130; BP diastolic 29–100
[2020-12-09] MEDS: ACETAMINOPHEN 325MG TABLET PO PRN ×2 (04:15→10:51)
[2020-12-09 05:08] LABS: HEMATOCRIT. 28.4 % (36.0-48.0); HEMOGLOBIN. 9.5 g/dL (12.0-16.0); MEAN CORPUSCULAR HEMOGLOBIN 28.9 pg (28.0-32.0); MEAN CORPUSCULAR VOLUME 86.4 fL (81.0-99.0); MEAN PLATELET VOLUME 11.2 fl (7.4-10.4); PLATELET 81 x1000/uL (130-400); RED BLOOD CELL COUNT 3.28 mill/uL (4.2-5.4); RED CELL DISTRIBUTION WIDTH 16.6 % (11.6-14.6)
[2020-12-09] MEDS: FLUDROCORTISONE ACETATE 0.1MG TABLET PO SCH (06:16)
[2020-12-09] MEDS: PIPERACILLIN/TAZOBACTAM 3.375 G in DEXT 5% WATER 100 ML IV SCH ×4 (06:16→23:39)
[2020-12-09] MEDS: METOCLOPRAMIDE HCL 10MG/2ML VIAL IV SCH ×4 (06:16→21:41)
[2020-12-09] MEDS: BLOOD SUGAR DIAGNOSTIC STRIP TEST SCH ×4 (06:38→21:39)
[2020-12-09] MEDS: INSULIN LISPRO 100 UNITS/ML SUBCUT SCH ×4 (07:40→21:00)
[2020-12-09] MEDS: INSULIN GLARGINE UD 100 UNITS/ML SYR SUBCUT SCH ×3 (10:00→22:16)
[2020-12-09] MEDS: DOCUSATE SODIUM 100MG CAPSULE PO SCH ×2 (10:50→17:00)
[2020-12-09] MEDS: POLYETHYLENE GLYCOL 3350 (17GM) 1 DOSE PACK PO SCH (10:50)
[2020-12-09] MEDS: ASCORBIC ACID 500 MG TABLET PO SCH (10:52)
[2020-12-09] MEDS: FERROUS SULFATE 325MG TABLET PO SCH ×2 (10:52→17:40)
[2020-12-09] MEDS: POTASSIUM CHLORIDE 20MEQ TABLET SR PO SCH (10:53)
[2020-12-09] MEDS: PANTOPRAZOLE SODIUM 40 MG/VIAL IV SCH ×2 (10:56→17:47)
[2020-12-09] MEDS: SODIUM CHLORIDE 0.9% 1,000 ML IV SCH ×3 (11:00→23:39)
[2020-12-09] MEDS: MIRTAZAPINE 15MG TABLET PO SCH ×2 (21:00→21:33)
[2020-12-09 21:36] LABS: NUCLEATED RED BLOOD CELLS 1 /100 WBC
[2020-12-09 21:37] LABS: PLATELET ESTIMATE DECREASED
[2020-12-10] VITALS: BP 99/57
[2020-12-10] MEDS ORDERED: ALBUMIN HUMAN 12.5GM/50ML (25%) IV ONE (01:30)
[2020-12-10] MEDS ORDERED: SODIUM CHLORIDE 0.9% 1000ML BAG (SEPSIS BOLUS) IV ONE (01:30)
[2020-12-10] MEDS ORDERED: ALBUMIN HUMAN 25GM/100ML (25%) IV SCH (02:00)
[2020-12-10 04:00] VITALS: BP 96/46
[2020-12-10] MEDS: METOCLOPRAMIDE HCL 10MG/2ML VIAL IV SCH ×3 (05:41→21:32)
[2020-12-10] MEDS: INSULIN LISPRO 100 UNITS/ML SUBCUT SCH ×4 (05:41→21:00)
[2020-12-10] MEDS: BLOOD SUGAR DIAGNOSTIC STRIP TEST SCH ×4 (05:41→21:00)
[2020-12-10] MEDS: SODIUM CHLORIDE 0.9% 1,000 ML IV SCH ×3 (05:42→23:38)
[2020-12-10] MEDS: DEXTROSE 50% WATER 50ML SYRINGE IV PRN ×3 (05:58→19:19)
[2020-12-10] MEDS: PIPERACILLIN/TAZOBACTAM 3.375 G in DEXT 5% WATER 100 ML IV SCH ×3 (06:39→18:37)
[2020-12-10] MEDS: FERROUS SULFATE 325MG TABLET PO SCH ×2 (06:39→17:40)
[2020-12-10 07:28] LABS: BASOPHILS % 0.4 % (0.0-2.0); EOSINOPHILS % 2.6 % (0.0-5.0); HEMATOCRIT. 31.9 % (36.0-48.0); HEMOGLOBIN. 10.7 g/dL (12.0-16.0); LYMPHOCYTES % 11.1 % (20.0-50.0); MEAN CORPUSCULAR VOLUME 86.7 fL (81.0-99.0); MEAN PLATELET VOLUME 10.9 fl (7.4-10.4); NEUTROPHILS % 78.9 % (40.0-76.0); PLATELET 141 x1000/uL (130-400); RED BLOOD CELL COUNT 3.68 mill/uL (4.2-5.4); RED CELL DISTRIBUTION WIDTH 16.8 % (11.6-14.6)
[2020-12-10 08:00] VITALS: BP 116/63
[2020-12-10] MEDS: POLYETHYLENE GLYCOL 3350 (17GM) 1 DOSE PACK PO SCH (09:00)
[2020-12-10] MEDS: POTASSIUM CHLORIDE 20MEQ TABLET SR PO SCH ×2 (09:00→10:52)
[2020-12-10] MEDS: PANTOPRAZOLE SODIUM 40 MG/VIAL IV SCH ×2 (10:52→18:27)
[2020-12-10] MEDS: FLUDROCORTISONE ACETATE 0.1MG TABLET PO SCH (10:52)
[2020-12-10] MEDS: DOCUSATE SODIUM 100MG CAPSULE PO SCH ×2 (10:52→18:28)
[2020-12-10] MEDS ORDERED: KCL 20MEQ/100ML PREMIX 100 ML IV NR (11:30)
[2020-12-10] MEDS: INSULIN GLARGINE UD 100 UNITS/ML SYR SUBCUT SCH ×2 (11:38→21:27)
[2020-12-10 12:00] VITALS: BP 128/76
[2020-12-10] MEDS: ASCORBIC ACID 500 MG TABLET PO SCH (12:19)
[2020-12-10 16:00] VITALS: BP 139/70
[2020-12-10] MEDS: MIDODRINE HCL 2.5MG TABLET PO SCH (17:00)
[2020-12-10 20:00] VITALS: BP 125/68
[2020-12-10] MEDS: MIRTAZAPINE 15MG TABLET PO SCH (21:32)
[2020-12-10] MEDS: LEVOFLOXACIN 750MG PREMIX 150 ML IV SCH (23:38)
[2020-12-11] VITALS: BP 130/88
[2020-12-11 04:00] VITALS: BP 127/74
[2020-12-11] MEDS: METOCLOPRAMIDE HCL 10MG/2ML VIAL IV SCH ×3 (06:00→22:13)
[2020-12-11] MEDS: SODIUM CHLORIDE 0.9% 1,000 ML IV SCH ×2 (06:12→14:20)
[2020-12-11] MEDS: BLOOD SUGAR DIAGNOSTIC STRIP TEST SCH ×4 (06:17→21:26)
[2020-12-11] MEDS: DEXTROSE 50% WATER 50ML SYRINGE IV PRN (06:21)
[2020-12-11 06:31] LABS: BASOPHILS % 0.4 % (0.0-2.0); EOSINOPHILS % 1.7 % (0.0-5.0); HEMATOCRIT. 29.9 % (36.0-48.0); HEMOGLOBIN. 10.2 g/dL (12.0-16.0); LYMPHOCYTES % 11.5 % (20.0-50.0); MEAN CORPUSCULAR HEMOGLOBIN 29.1 pg (28.0-32.0); MEAN CORPUSCULAR VOLUME 85.4 fL (81.0-99.0); MEAN PLATELET VOLUME 9.9 fl (7.4-10.4); MONOCYTES % 8.3 % (2.0-8.0); NEUTROPHILS % 78.1 % (40.0-76.0); PLATELET 169 x1000/uL (130-400); RED CELL DISTRIBUTION WIDTH 16.8 % (11.6-14.6)
[2020-12-11] MEDS: INSULIN LISPRO 100 UNITS/ML SUBCUT SCH ×4 (07:40→21:32)
[2020-12-11 08:00] VITALS: BP 129/59
[2020-12-11] MEDS: DOCUSATE SODIUM 100MG CAPSULE PO SCH ×2 (09:09→17:38)
[2020-12-11] MEDS: FLUDROCORTISONE ACETATE 0.1MG TABLET PO SCH (09:09)
[2020-12-11] MEDS: POTASSIUM CHLORIDE 20MEQ TABLET SR PO SCH (09:09)
[2020-12-11] MEDS: POLYETHYLENE GLYCOL 3350 (17GM) 1 DOSE PACK PO SCH (09:10)
[2020-12-11] MEDS: PANTOPRAZOLE SODIUM 40 MG/VIAL IV SCH ×2 (09:10→17:38)
[2020-12-11] MEDS: FERROUS SULFATE 325MG TABLET PO SCH ×2 (09:10→20:00)
[2020-12-11] MEDS: MIDODRINE HCL 2.5MG TABLET PO SCH ×3 (09:10→17:37)
[2020-12-11] MEDS: ASCORBIC ACID 500 MG TABLET PO SCH (09:11)
[2020-12-11] MEDS ORDERED: POTASSIUM CHLORIDE INJ 40 MEQ in DEXT 5% WATER 250 ML IV ONE (10:00)
[2020-12-11] MEDS: INSULIN GLARGINE UD 100 UNITS/ML SYR SUBCUT SCH ×2 (10:40→23:04)
[2020-12-11 16:00] VITALS: BP 129/54
[2020-12-11 20:00] VITALS: BP 144/71
[2020-12-11] MEDS: MIRTAZAPINE 15MG TABLET PO SCH (21:22)
[2020-12-11] MEDS: LEVOFLOXACIN 750MG PREMIX 150 ML IV SCH (21:26)
[2020-12-11] MEDS ORDERED: POTASSIUM CHLORIDE INJ 40 MEQ in DEXT 5% WATER 250 ML IV SCH (22:00)
[2020-12-12] VITALS: BP 130/60
[2020-12-12 04:00] VITALS: BP 145/70
[2020-12-12] MEDS: METOCLOPRAMIDE HCL 10MG/2ML VIAL IV SCH ×4 (04:52→21:15)
[2020-12-12 06:24] LABS: BASOPHILS % 0.9 % (0.0-2.0); HEMATOCRIT. 35.3 % (36.0-48.0); HEMOGLOBIN. 11.7 g/dL (12.0-16.0); LYMPHOCYTES % 16.2 % (20.0-50.0); MEAN CORPUSCULAR HEMOGLOBIN 28.7 pg (28.0-32.0); MEAN CORPUSCULAR VOLUME 86.4 fL (81.0-99.0); MEAN PLATELET VOLUME 9.8 fl (7.4-10.4); MONOCYTES % 8.8 % (2.0-8.0); NEUTROPHILS % 72.1 % (40.0-76.0); PLATELET 235 x1000/uL (130-400); RED BLOOD CELL COUNT 4.08 mill/uL (4.2-5.4); RED CELL DISTRIBUTION WIDTH 16.8 % (11.6-14.6)
[2020-12-12] MEDS: INSULIN LISPRO 100 UNITS/ML SUBCUT SCH ×4 (07:33→21:16)
[2020-12-12] MEDS: BLOOD SUGAR DIAGNOSTIC STRIP TEST SCH ×4 (07:33→21:16)
[2020-12-12] MEDS: FERROUS SULFATE 325MG TABLET PO SCH ×2 (07:40→17:49)
[2020-12-12 08:19] VITALS: BP 137/72
[2020-12-12] MEDS: PANTOPRAZOLE SODIUM 40 MG/VIAL IV SCH ×2 (10:22→17:49)
[2020-12-12] MEDS: POTASSIUM CHLORIDE 20MEQ TABLET SR PO SCH (10:24)
[2020-12-12] MEDS: FLUDROCORTISONE ACETATE 0.1MG TABLET PO SCH (10:24)
[2020-12-12] MEDS: ASCORBIC ACID 500 MG TABLET PO SCH (10:24)
[2020-12-12] MEDS: MIDODRINE HCL 2.5MG TABLET PO SCH ×3 (10:24→17:50)
[2020-12-12] MEDS: DOCUSATE SODIUM 100MG CAPSULE PO SCH ×2 (10:24→17:49)
[2020-12-12] MEDS: INSULIN GLARGINE UD 100 UNITS/ML SYR SUBCUT SCH ×2 (10:28→23:28)
[2020-12-12] MEDS: POLYETHYLENE GLYCOL 3350 (17GM) 1 DOSE PACK PO SCH (11:41)
[2020-12-12 12:12] VITALS: BP 122/69
[2020-12-12 16:14] VITALS: BP 132/55
[2020-12-12 20:00] VITALS: BP 154/65
[2020-12-12] MEDS: MIRTAZAPINE 15MG TABLET PO SCH ×2 (21:15→21:52)
[2020-12-12] MEDS: LEVOFLOXACIN 750MG PREMIX 150 ML IV SCH (21:16)
[2020-12-13] VITALS: BP 104/52
[2020-12-13] MEDS: METOCLOPRAMIDE HCL 10MG/2ML VIAL IV SCH ×3 (04:26→16:02)
[2020-12-13 06:23] VITALS: BP 124/89
[2020-12-13] MEDS: DEXTROSE 50% WATER 50ML SYRINGE IV PRN (06:37)
[2020-12-13 06:46] LABS: HEMATOCRIT. 30.1 % (36.0-48.0); HEMOGLOBIN. 10.2 g/dL (12.0-16.0); MEAN CORPUSCULAR HEMOGLOBIN 29.1 pg (28.0-32.0); MEAN PLATELET VOLUME 9.4 fl (7.4-10.4); PLATELET 274 x1000/uL (130-400); RED CELL DISTRIBUTION WIDTH 17.3 % (11.6-14.6)
[2020-12-13 06:47] LABS: BASOPHILS % 0.7 % (0.0-2.0); LYMPHOCYTES % 14.9 % (20.0-50.0); MONOCYTES % 7.7 % (2.0-8.0); NEUTROPHILS % 74.7 % (40.0-76.0)
[2020-12-13 06:55] LABS: CHLORIDE 117 mEq/L (98-107)
[2020-12-13] MEDS: BLOOD SUGAR DIAGNOSTIC STRIP TEST SCH ×3 (07:36→17:49)
[2020-12-13] MEDS: INSULIN LISPRO 100 UNITS/ML SUBCUT SCH ×3 (07:37→17:40)
[2020-12-13] MEDS: FERROUS SULFATE 325MG TABLET PO SCH ×2 (07:39→16:22)
[2020-12-13 08:00] VITALS: BP 129/69
[2020-12-13] MEDS: POTASSIUM CHLORIDE 20MEQ TABLET SR PO SCH ×2 (09:00→09:23)
[2020-12-13] MEDS: POLYETHYLENE GLYCOL 3350 (17GM) 1 DOSE PACK PO SCH ×2 (09:00→09:23)
[2020-12-13] MEDS: MIDODRINE HCL 2.5MG TABLET PO SCH ×3 (09:22→16:22)
[2020-12-13] MEDS: ASCORBIC ACID 500 MG TABLET PO SCH (09:23)
[2020-12-13] MEDS: DOCUSATE SODIUM 100MG CAPSULE PO SCH ×2 (09:23→16:22)
[2020-12-13] MEDS: FLUDROCORTISONE ACETATE 0.1MG TABLET PO SCH (09:23)
[2020-12-13] MEDS: PANTOPRAZOLE SODIUM 40 MG/VIAL IV SCH ×2 (09:23→16:22)
[2020-12-13] MEDS: INSULIN GLARGINE UD 100 UNITS/ML SYR SUBCUT SCH (09:24)
[2020-12-13 12:00] VITALS: BP 139/68
[2020-12-13 16:00] VITALS: BP 135/72
[2020-12-13] MEDS ORDERED: POTASSIUM CHLORIDE INJ 40 MEQ in DEXT 5% WATER 250 ML IV NR (16:00)
[2020-12-13] MEDS: ACETAMINOPHEN 325MG TABLET PO PRN (16:22)
[2020-12-13] MEDS ORDERED: DEXT 5%/0.45% NACL KCL 20MEQ/L 1,000 ML IV SCH (17:00)
[2020-12-13 17:31] VITALS: BP 135/72
== END 2020-12-13 21:27 | DRG 720 ==
LOC: ER 11:52 → MICUSO 16:13 → EDBEDREQ 16:21 → MICUSO 12-06 12:54 → 8WST 12-09 04:25
PROVIDERS: ADMIT Internal Medicine; ATTEND Internal Medicine
PROC: 02HV33Z Insertion of Infusion Device into Superior Vena Cava, Percutaneous Approach (ICD-10-PCS; principal; 2020-11-21)
PROC: B548ZZA Ultrasonography of Superior Vena Cava, Guidance (ICD-10-PCS; 2020-11-21)
PROC: 30233N1 Transfusion of Nonautologous Red Blood Cells into Peripheral Vein, Percutaneous Approach (ICD-10-PCS; 2020-12-03)
DX: A41.89 Other specified sepsis (principal); U07.1 COVID-19; E11.10 Type 2 diabetes mellitus with ketoacidosis without coma; R65.21 Severe sepsis with septic shock; I10 Essential (primary) hypertension; N39.0 Urinary tract infection, site not specified; E66.01 Morbid (severe) obesity due to excess calories; I25.10 Atherosclerotic heart disease of native coronary artery without angina pectoris; D64.9 Anemia, unspecified; K82.8 Other specified diseases of gallbladder; N20.0 Calculus of kidney; D69.6 Thrombocytopenia, unspecified; L89.212 Pressure ulcer of right hip, stage 2; L89.152 Pressure ulcer of sacral region, stage 2; E11.43 Type 2 diabetes mellitus with diabetic autonomic (poly)neuropathy; K31.84 Gastroparesis; E87.0 Hyperosmolality and hypernatremia; E87.6 Hypokalemia; J12.82 Pneumonia due to coronavirus disease 2019; K29.61 Other gastritis with bleeding; K27.4 Chronic or unspecified peptic ulcer, site unspecified, with hemorrhage; Z68.43 Body mass index [BMI] 50.0-59.9, adult; Z79.4 Long term (current) use of insulin; Z91.14 Patient's other noncompliance with medication regimen; J90 Pleural effusion, not elsewhere classified; K43.9 Ventral hernia without obstruction or gangrene; A41.50 Gram-negative sepsis, unspecified
CPT/HCPCS: 36415; 71045; 71275; 73502; 74176; 76937; 80048; 80053; 80076; 80202; 81003; 82270; 82533; 82550; 82553; 82728; 82962; 83036; 83520; 83540; 83550; 83605; 83615; 83735; 84075; 84100; 84145; 84439; 84484; 85014; 85018; 85025; 85049; 85379; 85384; 86140; 86850; 86900; 86920; 87077; 87186; 87804; 93005; 99291; A6261; C1725; C1893; C9113; J0610; J0696; J1650; J1815; J1956; J2405; J2543; J2765; J3370; J3475; J3480; J3490; J7030; J7040; J7042; J7050; J7060; P9016; P9047; Q0163; Q9967; U0003